=== PATIENT | male | born 1980 | race Caucasian/White ===

== ENCOUNTER 2018-12-14 09:29 | Day surgery (SDC) | payer OTHER ==
[2018-12-12 17:57] VITALS: BMI 24.3
[2018-12-14] MEDS ORDERED: PROPOFOL 20 ML ONE ×4 (09:49)
[2018-12-14] MEDS ORDERED: LIDOCAINE HCL/PF 2% SDV 5ML VIAL ONE (09:49)
[2018-12-14 10:04] VITALS: TEMP 98
[2018-12-14 11:22] VITALS: BP 118/66; PULSE 74
--- NOTE | 2018-12-16 16:10 | PATH ---
Surgical Pathology Report Patient Name: MACKENZIE PERALES [facility]. Rec. #: [id number] /Age/Gender: 1980 (Age: 38) / M Account: [id number] Location: [facility] Taken: 12/14/2018 Received: 12/14/2018 Reported: 12/16/2018 Physicians: Liliane Mccullough M.D. Specimen(s) Received A: SECOND PORTION DUODENUM B: BIOPSY GASTRIC ANTRUM C: GE JUNCTION R/O TURNER'S ESOPHAGUS Clinical History Hepatitis C surveillance Final Diagnosis A. SECOND PORTION DUODENUM, BIOPSY: DUODENAL MUCOSA WITH NO PATHOLOGIC FINDINGS. B. GASTRIC ANTRUM, BIOPSY: MODERATE CHRONIC ACTIVE GASTRITIS. IMMUNOSTAIN SHOWS NUMEROUS H. PYLORI ORGANISMS. C. 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 H.PYLORI ORGANISMS ARE PRESENT. NEGATIVE FOR DYSPLASIA. Electronically Signed Nataliya Keene M.D. Gross Description A. Received in formalin, labeled "second portion duodenum" is a garrido, irregular portion of soft tissue measuring 0.3 cm. in greatest dimension. The specimen is submitted in toto in one cassette. B. Received in formalin, labeled "gastric antrum" is a garrido, irregular portion of soft tissue measuring 0.2 cm. in greatest dimension. The specimen is submitted in toto in one cassette. C. Received in formalin, labeled "GE junction r/o Turner's esophagus " are 2 garrido, irregular portions of soft tissue each measuring 0.3 cm. in greatest dimension. The specimens are submitted in toto in one cassette.
== END 2018-12-14 11:05 | disposition home or self-care (01) ==
LOC: FASU-ENDO 09:29
PROVIDERS: ATTEND Internal Medicine Gastroenterology
PROC: 0DB68ZX Excision of Stomach, Via Natural or Artificial Opening Endoscopic, Diagnostic (ICD-10-PCS; 2018-12-14)
PROC: 0DB48ZX Excision of Esophagogastric Junction, Via Natural or Artificial Opening Endoscopic, Diagnostic (ICD-10-PCS; 2018-12-14)
PROC: 0DB98ZX Excision of Duodenum, Via Natural or Artificial Opening Endoscopic, Diagnostic (ICD-10-PCS; principal; 2018-12-14 10:13)
DX: Z13.810 Encounter for screening for upper gastrointestinal disorder (principal); K29.50 Unspecified chronic gastritis without bleeding; B96.81 Helicobacter pylori [H. pylori] as the cause of diseases classified elsewhere; K31.89 Other diseases of stomach and duodenum; K22.70 Barrett's esophagus without dysplasia; R10.13 Epigastric pain
CPT/HCPCS: 88305-TC; 88342-TC